=== PATIENT | male | born 1960 | race Caucasian/White ===

== ENCOUNTER 2025-04-02 15:58 | Emergency (ER) | payer MEDICARE ==
[2025-04-02] MEDS ORDERED: Rabies Immune Globulin/PF 300 UNITS/ML VIAL IM SCH (18:45)
[2025-04-02] MEDS ORDERED: Rabies Vaccine Human 2.5 UNITS VIAL IM ONE (18:45)
[2025-04-02] MEDS ORDERED: Amoxicillin/Potassium Clav 875 MG TAB ONE (19:43)
== END 2025-04-02 20:19 | disposition home or self-care (01) ==
LOC: CSHERS 15:58
DX: S61.251A Open bite of left index finger without damage to nail, initial encounter (principal); Z23 Encounter for immunization; I48.91 Unspecified atrial fibrillation; I10 Essential (primary) hypertension; Z86.73 Personal history of transient ischemic attack (TIA), and cerebral infarction without residual deficits; W64.XXXA Exposure to other animate mechanical forces, initial encounter
CPT/HCPCS: 90375; 90471; 90675

== ENCOUNTER → 2025-04-16 | Day surgery (SDC) | payer MEDICARE ==
[~2025-04-16] MED LIST: Rabies Vaccine Human 2.5 UNITS VIAL IM ONE
== END ==
LOC: CSHER/OP 08:22
PROVIDERS: ATTEND Student in an Organized Health Care Education/Training Program
DX: Z29.14 Encounter for prophylactic rabies immune globulin (principal)
CPT/HCPCS: 90675